=== PATIENT | male | born 1965 | race Two or more races ===

== ENCOUNTER 2019-12-28 14:08 | Outpatient (CLI) | payer MEDICAID ==
[~2019-12-28] VITALS: Ht 167.6 cm; Wt 73.0 kg
[2019-12-28 14:29] VITALS: BP 110/67
--- NOTE | 2019-12-28 16:30 | Consultation ---
DATE OF CONSULTATION: 12/28/2019 CHIEF COMPLAINT: Cirrhosis. HISTORY OF PRESENT ILLNESS: The patient is a 54-year-old male with alcoholic cirrhosis and esophageal varices admitted to the hospital at [facility] . Apparently, he had endoscopy. He is here for followup. PAST MEDICAL HISTORY: Alcoholic cirrhosis, anemia. PAST SURGICAL HISTORY: None. MEDICATIONS: None. FAMILY HISTORY: No family history of GI malignancies. SOCIAL HISTORY: The patient used to be a alcoholic. He states he quit since September after he had bleeding. No tobacco. No IV drug abuse. ALLERGIES: No known drug allergies. REVIEW OF SYSTEMS: At this time, 12-point review of systems was performed and was negative. PHYSICAL EXAMINATION: VITAL SIGNS: Temperature 97.9, blood pressure 110/67, pulse 84, respirations 20 HEENT: Normocephalic and atraumatic. Sclerae anicteric. NECK: Supple. No evidence of obvious lymphadenopathy. CARDIOVASCULAR: Regular rate and rhythm. Plus S1, S2. LUNGS: Clear to auscultation bilaterally. ABDOMEN: Positive bowel sounds. Soft and nontender. No rebound. No guarding. No peritoneal sign. EXTREMITIES: No cyanosis. No clubbing. No edema. ASSESSMENT AND PLAN: The patient is a 54-year-old male with alcoholic cirrhosis, seems to be complicated with GI bleeding, we do not have the records, we are not sure exactly if he had an endoscopy or he had banding or not. Plan to get labs today. The patient to be scheduled for endoscopy and colonoscopy after above and he needs to follow up in the office for further management of cirrhosis. James De Los Santos M.D. DR: Gary JOB#: [id number] CC:
== END 2019-12-28 16:08 | disposition home or self-care (01) ==
LOC: PAN 14:08
DX: K70.30 Alcoholic cirrhosis of liver without ascites (principal)
CPT/HCPCS: G0463